=== PATIENT | male | born 1950 | race African-American/Black ===

== ENCOUNTER 2023-12-06 12:59 | Emergency (ER) | payer MEDICARE, OTHER ==
[2023-12-06 13:08] VITALS: TEMP 98.6
--- NOTE | 2023-12-06 13:19 | ED ---
General Adult HPI - General Chief complaint: Weakness Stated complaint: ams Source: EMS Mode of arrival: EMS Limitations: altered mental status - History of Present Illness Initial comments: 73-year-old man who presents emergency department originally as a Krish Hoffman. Patient is brought in by EMS. They state that they found the patient in a park. He had been down on all fours. It looks like the patient was struggling to get up. Patient seemed confused and could not provide history. His speech was significantly garbled. There is no surrounding family or friends to help identify the patient. He presents to the emergency department wearing 3 shirts and 2 pair of pants. Unsure of the patient's baseline Upon further research the patient was part of a assisted outing. He is originally from [place]. It was reported that the patient went to the front of the park to have a cigarette. He accidentally fell. He was unsupervised by the assisted staff at this time and therefore he was from his group. It is unsure if the patient hit his head or lost consciousness. Patient denies any pain. No other alleviating, precipitating or modifying factors - Related Data Home Medications Medication Instructions Recorded Confirmed Albuterol Sulfate [Ventolin HFA] 2 puff INHALATION RT-BID PRN 12/06/23 12/06/23 Aspirin EC [Ecotrin Low Dose] 81 mg PO DAILY 12/06/23 12/06/23 Atorvastatin Calcium [Lipitor] 40 mg PO HS 12/06/23 12/06/23 Carbidopa-Levodopa 25-100 mg 1 tab PO TID 12/06/23 12/06/23 [Sinemet 25-100] Cholecalciferol (Vitamin D3) 50 mcg PO DAILY 12/06/23 12/06/23 [Vitamin D3 (50 Mcg = 2000 Iu) Chew Tab] Dapagliflozin Propanediol [Farxiga] 10 mg PO DAILY 12/06/23 12/06/23 Insulin Glargine,Hum.rec.anlog 25 units SQ DAILY 12/06/23 12/06/23 [Lantus Solostar Pen] Linagliptin [Tradjenta] 5 mg PO DAILY 12/06/23 12/06/23 Metoprolol Succinate [Toprol XL] 100 mg PO DAILY 12/06/23 12/06/23 OLANZapine [ZyPREXA] 20 mg PO HS 12/06/23 12/06/23 Spironolactone 25 mg PO DAILY 12/06/23 12/06/23 Tamsulosin HCl [Flomax] 0.4 mg PO HS 12/06/23 12/06/23 amLODIPine [Norvasc] 5 mg PO DAILY 12/06/23 12/06/23 fluPHENAZine HCl [fluPHENAZine HCL] 1 mg PO BID 12/06/23 12/06/23 hydrALAZINE HCL 25 mg PO Q12H 12/06/23 12/06/23 Allergies Allergy/AdvReac Type Severity Reaction Status Date / Time Unable to Assess Allergy Unverified 12/06/23 15:07 Review of Systems ROS Statement: Those systems with pertinent positive or pertinent negative responses have been documented in the HPI. ROS Other: All systems not noted in ROS Statement are negative. Past Medical History Past Medical History: Unable to Obtain Past Surgical History: Unable to Obtain Past Psychological History: Unable to Obtain Smoking Status: Unknown if ever smoked Past Alcohol Use History: Unable to Obtain Past Drug Use History: Unable to Obtain General Exam Limitations: altered mental status General appearance: alert, lethargic Head exam: Present: atraumatic, normocephalic, normal inspection Eye exam: Present: normal appearance, PERRL, EOMI. Absent: scleral icterus, conjunctival injection, periorbital swelling ENT exam: Present: mucous membranes dry Neck exam: Present: normal inspection. Absent: tenderness, meningismus, lymphadenopathy Respiratory exam: Present: normal lung sounds bilaterally. Absent: respiratory distress, wheezes, rales, rhonchi, stridor Cardiovascular Exam: Present: regular rate, normal rhythm, normal heart sounds. Absent: systolic murmur, diastolic murmur, rubs, gallop, clicks Neurological exam: Present: altered, other (Patient has some mumbled speech) Psychiatric exam: Present: flat affect Course Vital Signs 12/06/23 12/06/23 13:02 14:34 Temperature 98.6 F Pulse Rate 84 70 Respiratory 20 18 Rate Blood Pressure 137/80 142/77 O2 Sat by Pulse 97 100 Oximetry Medical Decision Making - Medical Decision Making Was pt. sent in by a medical professional or institution (, PA, [employer], urgent care, hospital, or snf...) When possible be specific @ -No Did you speak to anyone other than the patient for history (EMS, parent, family, police, friend...)? What history was obtained from this source @ -I spoke with EMS for history Did you review nursing and triage notes (agree or disagree)? Why? @ -I reviewed and agree with nursing and triage notes Were old charts reviewed (outside hosp., previous admission, EMS record, old EKG, old radiological studies, urgent care reports/EKG's, snf records)? Report findings @ -No old charts were reviewed Differential Diagnosis (chest pain, altered mental status, abdominal pain women, abdominal pain men, vaginal bleeding, weakness, fever, dyspnea, syncope, head ache, dizziness, GI bleed, back pain, seizure, CVA, palpatations, mental health, musculoskeletal)? @ -Differential Altered Mental Status: Hypoglycemia, DKA, hypercapnia, ETOH, overdose, CO poisoning, trauma, myxedema coma, HTN encephalopathy, infection, encephalitis, psychosis, intercranial hemorrhage, hepatic encephalopathy, meningitis, CVA, this is not meant to be an all-inclusive list EKG interpreted by me (3pts min.). @ -Yes and demonstrates sinus rhythm with a rate of 81. SD interval 160. QRS 156. QTc of 435. Left bundle branch block. Negative for sgarbossa criteria X-rays interpreted by me (1pt min.). @ -Yes and demonstrates no acute process CT interpreted by me (1pt min.). @ -Yes and demonstrates no acute process U/S interpreted by me (1pt. min.). @ -None done What testing was considered but not performed or refused? (CT, X-rays, U/S, labs)? Why? @ -None What meds were considered but not given or refused? Why? @ -None Did you discuss the management of the patient with other professionals (professionals i.e. , PA, [employer], lab, RT, psych nurse, social science professor, gis scientist, teacher, job placement officer, major case detective)? Give summary @ -No Was smoking cessation discussed for >3mins.? @ -No Was critical care preformed (if so, how long)? @ -No Were there social determinants of health that impacted care today? How? (Homelessness, low income, unemployed, alcoholism, drug addiction, transportation, low edu. Level, literacy, decrease access to med. care, assisted, rehab)? @ -Patient resides in a assisted facility Was there de-escalation of care discussed even if they declined (Discuss DNR or withdrawal of care, Hospice)? DNR status @ -No What co-morbidities impacted this encounter? (DM, HTN, Smoking, COPD, CAD, Cancer, CVA, ARF, Chemo, Hep., AIDS, mental health diagnosis, sleep apnea, morbid obesity)? @ -None Was patient admitted / discharged? Hospital course, mention meds given and route, prescriptions, significant lab abnormalities, going to OR and other pertinent info. @ -Upon arrival patient seen and evaluated in trauma 1. Thorough history and physical exam was performed. half-way workers do eventually make their way to the hospital. They state that the patient is at his normal baseline. As I am unsure of the injuries that the patient sustained during his fall I did conduct laboratory studies, chest x-ray, postoperative. CT of the brain. Lactic acid is elevated. Patient was given intravenous fluids and this does correct. Patient continues to be at his baseline neurologic status with stable vital signs. At this time the patient is stable for discharge home. His guardian is made aware of today's incident. Patient discharged in stable condition Undiagnosed new problem with uncertain prognosis? @ -No Drug Therapy requiring intensive monitoring for toxicity (Heparin, Nitro, Insulin, Cardizem)? @ -No Were any procedures done? @ -No Diagnosis/symptom? @ -Acute fall, lactic acidosis, heat exhaustion, history of dementia Acute, or Chronic, or Acute on Chronic? @ -Acute Uncomplicated (without systemic symptoms) or Complicated (systemic symptoms)? @ -Complicated Side effects of treatment? @ -No Exacerbation, Progression, or Severe Exacerbation? @ -No Poses a threat to life or bodily function? How? (Chest pain, [place], [place], pneumonia, PE, COPD, DKA, ARF, appy, cholecystitis, CVA, Diverticulitis, Homicidal, Suicidal, threat to staff... and all critical care pts) @ -No - Lab Data Result diagrams: 12/06/23 15:38 12/06/23 13:31 Lab Results 12/06/23 12/06/23 12/06/23 Range/Units 13:31 13:31 13:31 WBC (3.8-10.6) k/uL RBC (4.30-5.90) m/uL Hgb (13.0-17.5) gm/dL Hct (39.0-53.0) % MCV (80.0-100.0) fL MCH (25.0-35.0) pg MCHC (31.0-37.0) g/dL RDW (11.5-15.5) % Plt Count (150-450) k/uL MPV Neutrophils % % Lymphocytes % % Monocytes % % Eosinophils % % Basophils % % Neutrophils # (1.3-7.7) k/uL Lymphocytes # (1.0-4.8) k/uL Monocytes # (0-1.0) k/uL Eosinophils # (0-0.7) k/uL Basophils # (0-0.2) k/uL PT (10.0-12.5) sec INR (<1.2) APTT (22.0-30.0) sec Sodium 142 (137-145) mmol/L Potassium 4.6 (3.5-5.1) mmol/L Chloride 116 H (98-107) mmol/L Carbon Dioxide 13 L (22-30) mmol/L Anion Gap 13 mmol/L BUN 21 H (9-20) mg/dL Creatinine 1.72 H (0.66-1.25) mg/dL Est GFR (CKD-EPI)AfAm 43 (>60 ml/min/1.73 sqM) Est GFR (CKD-EPI)NonAf 37 (>60 ml/min/1.73 sqM) Glucose 138 H (74-99) mg/dL Lactic Ac Sepsis Rflx Plasma Lactic Acid Bob 7.0 H* (0.7-2.0) mmol/L Calcium 8.7 (8.4-10.2) mg/dL Total Bilirubin 0.5 (0.2-1.3) mg/dL AST 30 (17-59) U/L ALT 15 (4-49) U/L Alkaline Phosphatase 209 H (38-126) U/L Ammonia 19 (<30) umol/L Troponin I 0.034 (0.000-0.034) ng/mL Total Protein 6.5 (6.3-8.2) g/dL Albumin 4.0 (3.5-5.0) g/dL Serum Alcohol <10 mg/dL Influenza Type A (PCR) (Not Detectd) Influenza Type B (PCR) (Not Detectd) RSV (PCR) (Not Detectd) SARS-CoV-2 (PCR) (Not Detectd) 12/06/23 12/06/23 12/06/23 Range/Units 13:31 13:51 14:20 WBC (3.8-10.6) k/uL RBC (4.30-5.90) m/uL Hgb (13.0-17.5) gm/dL Hct (39.0-53.0) % MCV (80.0-100.0) fL MCH (25.0-35.0) pg MCHC (31.0-37.0) g/dL RDW (11.5-15.5) % Plt Count (150-450) k/uL MPV Neutrophils % % Lymphocytes % % Monocytes % % Eosinophils % % Basophils % % Neutrophils # (1.3-7.7) k/uL Lymphocytes # (1.0-4.8) k/uL Monocytes # (0-1.0) k/uL Eosinophils # (0-0.7) k/uL Basophils # (0-0.2) k/uL PT 11.5 (10.0-12.5) sec INR 1.1 (<1.2) APTT 24.0 (22.0-30.0) sec Sodium (137-145) mmol/L Potassium (3.5-5.1) mmol/L Chloride (98-107) mmol/L Carbon Dioxide (22-30) mmol/L Anion Gap mmol/L BUN (9-20) mg/dL Creatinine (0.66-1.25) mg/dL Est GFR (CKD-EPI)AfAm (>60 ml/min/1.73 sqM) Est GFR (CKD-EPI)NonAf (>60 ml/min/1.73 sqM) Glucose (74-99) mg/dL Lactic Ac Sepsis Rflx Y Plasma Lactic Acid Bob (0.7-2.0) mmol/L Calcium (8.4-10.2) mg/dL Total Bilirubin (0.2-1.3) mg/dL AST (17-59) U/L ALT (4-49) U/L Alkaline Phosphatase (38-126) U/L Ammonia (<30) umol/L Troponin I (0.000-0.034) ng/mL Total Protein (6.3-8.2) g/dL Albumin (3.5-5.0) g/dL Serum Alcohol mg/dL Influenza Type A (PCR) Not Detected (Not Detectd) Influenza Type B (PCR) Not Detected (Not Detectd) RSV (PCR) Not Detected (Not Detectd) SARS-CoV-2 (PCR) Not Detected (Not Detectd) 12/06/23 12/06/23 Range/Units 15:38 16:01 WBC 11.8 H (3.8-10.6) k/uL RBC 4.82 (4.30-5.90) m/uL Hgb 14.2 (13.0-17.5) gm/dL Hct 45.1 (39.0-53.0) % MCV 93.5 (80.0-100.0) fL MCH 29.4 (25.0-35.0) pg MCHC 31.4 (31.0-37.0) g/dL RDW 13.9 (11.5-15.5) % Plt Count 159 (150-450) k/uL MPV 7.5 Neutrophils % 87 % Lymphocytes % 6 % Monocytes % 5 % Eosinophils % 0 % Basophils % 0 % Neutrophils # 10.3 H (1.3-7.7) k/uL Lymphocytes # 0.8 L (1.0-4.8) k/uL Monocytes # 0.6 (0-1.0) k/uL Eosinophils # 0.0 (0-0.7) k/uL Basophils # 0.0 (0-0.2) k/uL PT (10.0-12.5) sec INR (<1.2) APTT (22.0-30.0) sec Sodium (137-145) mmol/L Potassium (3.5-5.1) mmol/L Chloride (98-107) mmol/L Carbon Dioxide (22-30) mmol/L Anion Gap mmol/L BUN (9-20) mg/dL Creatinine (0.66-1.25) mg/dL Est GFR (CKD-EPI)AfAm (>60 ml/min/1.73 sqM) Est GFR (CKD-EPI)NonAf (>60 ml/min/1.73 sqM) Glucose (74-99) mg/dL Lactic Ac Sepsis Rflx Plasma Lactic Acid Bob 1.1 (0.7-2.0) mmol/L Calcium (8.4-10.2) mg/dL Total Bilirubin (0.2-1.3) mg/dL AST (17-59) U/L ALT (4-49) U/L Alkaline Phosphatase (38-126) U/L Ammonia (<30) umol/L Troponin I (0.000-0.034) ng/mL Total Protein (6.3-8.2) g/dL Albumin (3.5-5.0) g/dL Serum Alcohol mg/dL Influenza Type A (PCR) (Not Detectd) Influenza Type B (PCR) (Not Detectd) RSV (PCR) (Not Detectd) SARS-CoV-2 (PCR) (Not Detectd) Disposition Clinical Impression: Lactic acidosis, Hypoxia, Heat exhaustion, Dementia Disposition: HOME SELF-CARE Condition: Stable Instructions (If sedation given, give patient instructions): Heat Exhaustion (ED) Additional Instructions: I recommend wearing cool/light clothing and staying hydrated. Follow-up with your primary care doctor and return for any new or worsening symptoms Is patient prescribed a controlled substance at d/c from ED?: No Referrals: None,Stated [Primary Care Provider] - 1-2 days Time of Disposition: 17:09
[2023-12-06] MEDS: SODIUM CHLORIDE 0.9% 500 ML 500 ML IV ONE (13:27)
--- NOTE | 2023-12-06 13:48 | XR ---
EXAMINATION TYPE: XR chest 2V DATE OF EXAM: 12/06/2023 COMPARISON: NONE HISTORY: Shortness of breath TECHNIQUE: Frontal and lateral views of the chest are obtained. FINDINGS: Scattered senescent parenchymal changes noted. Hyperinflation compatible with COPD. No evidence for infiltrate. No evidence for atelectasis. Heart size is stable. Mediastinal structures are stable and grossly unremarkable. No evidence for hilar prominence. Degenerative changes dorsal spine. IMPRESSION: 1. No evidence for acute pulmonary disease.
[2023-12-06 13:49] LABS: ALT 15 U/L (4-49); AST 30 U/L (17-59); African American GFR (CKD) 43 (>60 ml/min/1.73 sqM); Alcohol <10 mg/dL; Alkaline Phosphatase 209 U/L (38-126); Anion Gap 13 mmol/L; Blood Urea Nitrogen 21 mg/dL (9-20); Calcium 8.7 mg/dL (8.4-10.2); Carbon Dioxide 13 mmol/L (22-30); Chloride 116 mmol/L (98-107); Glucose 138 mg/dL (74-99); Non-African American GFR(CKD) 37 (>60 ml/min/1.73 sqM); Potassium 4.6 mmol/L (3.5-5.1); Sodium 142 mmol/L (137-145); Total Bilirubin 0.5 mg/dL (0.2-1.3); Total Protein 6.5 g/dL (6.3-8.2)
[2023-12-06] MEDS: SODIUM CHLORIDE 0.9% 1,000 ML IV ONE (14:31)
[2023-12-06 14:34] VITALS: BP 142/77; PULSE 70; RESP 18
--- NOTE | 2023-12-06 14:34 | CT ---
EXAMINATION TYPE: CT brain wo con DATE OF EXAM: 12/06/2023 COMPARISON: None INDICATION: AMS DLP: 1096 mGycm, Automated exposure control for dose reduction was used. CONTRAST: None CT of the brain is performed utilizing 3 mm thick sections through the posterior fossa and 3 mm thick sections through the remaining calvarium. Study is performed within 24 hours of arrival to the hosp [place]. No abnormal hyperdensity is present to suggest an acute intracranial hemorrhage. No mass lesion is evident. No acute infarcts are evident. There is some periventricular white matter hypodensity which is nonspe cific but can be related to microvascular ischemic change. Ventricles and sulci may have some prominence with the appearance of some atrophy. Paranasal sinuses and mastoid air cells within the [id number] are clear. IMPRESSION: 1. Periventricular white matter hypodensity which can be compatible with chronic white matter ische zaira changes. Some changes suggesting atrophy may be present. 2. No acute intracranial process radiographically apparent. Follow-up MRI can be performed as clinica lly indicated.
[2023-12-06 15:58] LABS: Basophils % (A) 0 %; Eosinophils % (A) 0 %; HCT 45.1 % (39.0-53.0); HGB 14.2 gm/dL (13.0-17.5); Lymphocytes # (A) 0.8 k/uL (1.0-4.8); Lymphocytes % (A) 6 %; MCH 29.4 pg (25.0-35.0); MCHC 31.4 g/dL (31.0-37.0); MCV 93.5 fL (80.0-100.0); Mean Platelet Volume 7.5; Monocytes # (A) 0.6 k/uL (0-1.0); Monocytes % (A) 5 %; Neutrophils # (A) 10.3 k/uL (1.3-7.7); Neutrophils % (A) 87 %; Platelet Count 159 k/uL (150-450); RBC 4.82 m/uL (4.30-5.90); RDW 13.9 % (11.5-15.5); WBC 11.8 k/uL (3.8-10.6)
[2023-12-06 16:47] LABS: INR 1.1 (<1.2); Prothrombin Time 11.5 sec (10.0-12.5)
== END 2023-12-06 18:26 | disposition home or self-care (01) ==
LOC: EDBD → EC 12:59
DX: E87.20 Acidosis, unspecified (principal); F03.90 Unspecified dementia, unspecified severity, without behavioral disturbance, psychotic disturbance, mood disturbance, and anxiety; R09.02 Hypoxemia; T67.5XXA Heat exhaustion, unspecified, initial encounter; I44.7 Left bundle-branch block, unspecified; Z11.52 Encounter for screening for COVID-19
CPT/HCPCS: 36415; 93005; 80053; 82140; 83605; 84484; 85025; 85610; 85730; 87636; 71046; 70450; 99285; 96360; 96361; G0480; 80320